=== PATIENT | male | born 1985 | race Two or more races ===

== ENCOUNTER 2021-04-14 01:06 | Emergency (ER) | payer OTHER ==
[~2021-04-14] VITALS: Ht 175.3 cm; Wt 77.1 kg
[2021-04-15] MEDS ORDERED: INTESTINEX680 M1 PO (14:46)
[2021-04-15] MEDS ORDERED: AMOX-CLAV 875-1 EAC1 PO (14:46)
[2021-05-14] MEDS ORDERED: [UNRECOGNIZED DRUG - OTHER] (11:21)
== END 2021-04-14 04:43 | disposition home or self-care (01) ==
LOC: ER 01:06
DX: S42.402A Unspecified fracture of lower end of left humerus, initial encounter for closed fracture (principal)

== ENCOUNTER 2021-04-15 10:57 | Emergency (ER) | payer OTHER ==
[~2021-04-15] VITALS: Ht 175.3 cm; Wt 79.4 kg
[2021-04-15] MEDS ORDERED: AMOX-CLAV 875-1 EAC1 PO (14:46)
[2021-04-15] MEDS ORDERED: INTESTINEX680 M1 PO (14:46)
[2021-05-14] MEDS ORDERED: [UNRECOGNIZED DRUG - OTHER] (11:21)
== END 2021-04-15 14:57 ==
LOC: ER 10:57
DX: S70.02XS Contusion of left hip, sequela (principal); S80.12XS Contusion of left lower leg, sequela; V03.09XA Pedestrian with other conveyance injured in collision with car, pick-up truck or van in nontraffic accident, initial encounter; Y93.9 Activity, unspecified; Y92.9 Unspecified place or not applicable